=== PATIENT | female | born 1960 ===

== ENCOUNTER 2019-03-18 13:54 | Day surgery (SDC) | payer MEDICARE ==
[~2019-03-18] VITALS: Ht 157.5 cm; Wt 99.8 kg
[~2019-03-18 13:54] MED LIST: BACL10; Flonase 0.05% N16 GM; LEVSOD50; ZYRTEC10 M1
--- NOTE | 2019-03-18 15:22 | NUR ---
03/18/19 1522 Adri Aguiar [email or web address] VIA POM [email or web address] PER DR PACHECO
== END 2019-03-18 16:03 | disposition home or self-care (01) ==
LOC: ORSCSDS 13:54
PROVIDERS: Student in an Organized Health Care Education/Training Program
PROC: 0DB68ZX Excision of Stomach, Via Natural or Artificial Opening Endoscopic, Diagnostic (ICD-10-PCS; principal; 2019-03-18 15:15)
PROC: 0DB98ZX Excision of Duodenum, Via Natural or Artificial Opening Endoscopic, Diagnostic (ICD-10-PCS; principal; 2019-03-18 15:15)
PROC: 0DB58ZX Excision of Esophagus, Via Natural or Artificial Opening Endoscopic, Diagnostic (ICD-10-PCS; principal; 2019-03-18 15:15)
DX: K21.9 Gastro-esophageal reflux disease without esophagitis (principal); K31.7 Polyp of stomach and duodenum; R12 Heartburn; E66.9 Obesity, unspecified; Z68.41 Body mass index [BMI] 40.0-44.9, adult; Z79.899 Other long term (current) drug therapy
CPT/HCPCS: 82947; J2704; J7120